=== PATIENT | female | born 1995 | race Caucasian/White ===

== ENCOUNTER 2022-06-22 07:47 | Emergency (ER) | payer OTHER ==
[2022-06-22 08:09] VITALS: BP 123/79; BMI 47.2
[2022-06-22] MEDS ORDERED: ACETAMINOPHEN 325 MG TABLET (FP) PO ONE (08:29)
[2022-06-22] MEDS ORDERED: AZITHROMYCIN 500 MG TABLET PO ONE (09:54)
[2022-06-22] MEDS ORDERED: AZITHROMYCIN 250 MG TABLET ONE (10:01)
[2022-06-22 10:20] VITALS: PULSE 95; RESP 18; TEMP 99.9
== END 2022-06-22 10:18 | disposition home or self-care (01) ==
LOC: JERFT 07:47
DX: H66.91 Otitis media, unspecified, right ear (principal); R50.9 Fever, unspecified; Z20.822 Contact with and (suspected) exposure to COVID-19
CPT/HCPCS: 0241U-QW; 99283-25